=== PATIENT | female | born 1985 | race Caucasian/White ===

== ENCOUNTER → 2018-06-29 | Outpatient (CLI) | payer OTHER ==
[2018-06-29 12:42] LABS: BASO % 0 % (0-3); EOS % 0 % (0-3); HEMATOCRIT 41.9 % (36.0-47.0); HEMOGLOBIN 14.3 g/dL (12.0-15.5); LYMPH # 1.5 x10^3/uL (1.0-4.8); LYMPH % 25 % (24-48); MEAN CORPUSCULAR HEMOGLOBIN 30 pg (25-35); MEAN CORPUSCULAR HGB CONC 34 g/dL (31-37); MEAN CORPUSCULAR VOLUME 89 fL (79-100); MONO # 0.4 x10^3/uL (0.0-1.1); MONO % 7 % (0-9); NEUT % 68 % (31-73); PLATELET COUNT 240 x10^3/uL (140-400); RED BLOOD COUNT 4.73 x10^6/uL (3.50-5.40); RED CELL DISTRIBUTION WIDTH 12.9 % (11.5-14.5)
[2018-06-29 12:48] LABS: ALBUMIN 3.4 g/dL (3.4-5.0); ALBUMIN/GLOBULIN RATIO 0.8 (1.0-1.7); CALCIUM 8.6 mg/dL (8.5-10.1); GFR 63.9; POTASSIUM 3.8 mmol/L (3.5-5.1); TOTAL BILIRUBIN 0.6 mg/dL (0.2-1.0); TOTAL PROTEIN 7.6 g/dL (6.4-8.2)
== END | disposition home or self-care (01) ==
LOC: LAB 11:11
PROVIDERS: ATTEND Family Medicine
DX: R10.84 Generalized abdominal pain (principal)
CPT/HCPCS: 36415; 80053; 85025

== ENCOUNTER 2020-11-06 14:35 | Emergency (ER) | payer SELFPAY ==
[~2020-11-06] VITALS: Ht 157.5 cm; Wt 132.0 kg
--- NOTE | 2020-11-06 15:02 | PHYS DOC ---
Adult General Chief Complaint Chief Complaint: LOWER EXTREMITY SWELLING HPI HPI Patient is a 35F presented to the emergency department for worsening left lower extremity pain and swelling. Patient states approximate 2 weeks ago she started injury she fell and has been having ongoing pain in her left foot. Was seen by a security nurse who diagnosed her with severe plantar fasciitis. However since the time the patient notes that she has been having worsening sensation of swelling over the left calf and ankle. Also notes worsening pain in the area. Patient states this has been worsening over the last 2 days as well. Denies any fever, chills, shortness of breath, chest pain Review of Systems Review of Systems Constitutional: Denies fever or chills [] Eyes: Denies change in visual acuity, redness, or eye pain [] HENT: Denies nasal congestion or sore throat [] Respiratory: Denies cough or shortness of breath [] Cardiovascular: No additional information not addressed in HPI [] GI: Denies abdominal pain, nausea, vomiting, bloody stools or diarrhea [] : Denies dysuria or hematuria [] Musculoskeletal: Denies back pain or joint pain [] Integument: Denies rash or skin lesions [] Neurologic: Denies headache, focal weakness or sensory changes [] Endocrine: Denies polyuria or polydipsia [] All other systems were reviewed and found to be within normal limits, except as documented in this note. Physical Exam Physical Exam Constitutional: Well developed, well nourished, no acute distress, non-toxic appearance. [] HENT: Normocephalic, atraumatic, bilateral external ears normal, oropharynx moist, no oral exudates, nose normal. [] Eyes: PERRLA, EOMI, conjunctiva normal, no discharge. [] Neck: Normal range of motion, no tenderness, supple, no stridor. [] Cardiovascular:Heart rate regular rhythm, no murmur [] Lungs & Thorax: Bilateral breath sounds clear to auscultation [] Abdomen: Bowel sounds normal, soft, no tenderness, no masses, no pulsatile masses. [] Skin: Warm, dry, no erythema, no rash. [] Back: No tenderness, no CVA tenderness. [] Extremities: No tenderness, no cyanosis, no clubbing, ROM intact, no edema. [] Neurologic: Alert and oriented X 3, normal motor function, normal sensory function, no focal deficits noted. [] Psychologic: Affect normal, judgement normal, mood normal. [] EKG EKG [] Radiology/Procedures Radiology/Procedures Exam performed: Left lower extremity venous Doppler. HISTORY: Left leg pain. DATE OF SERVICE: 11/06/2020. COMPARISON: None available Technique: Real-time grayscale, color flow color duplex ultrasonography analysis off the left lower extremity deep venous system is performed and images are obtained. FINDINGS: There is a occlusive thrombus in the left superficial femoral vein extending up to the popliteal vein. The peroneal veins are not visualized. IMPRESSION: Study is positive for DVT as outlined above. Electronically signed by: Sara Espinoza MD (11/06/2020 4:09 PM) [id number] Heart Score Risk Factors: Risk Factors: DM, Current or recent (<one month) smoker, HTN, HLP, family history of CAD, obesity. Risk Scores: Risk Factors: DM, Current or recent (<one month) smoker, HTN, HLP, family history of CAD, obesity. Course & Med Decision Making Course & Med Decision Making Pertinent Labs and Imaging studies reviewed. (See chart for details) 35-year-old female with new onset of left lower extremity swelling is always reported history of an injury to the area. Primary concern is for acute DVT in the left lower extremity. Considerations for fracture, cellulitis or compartment syndrome. Will obtain an x-ray of the area as well as an ultrasound to rule out DVT 16:45 -left lower extremity ultrasound does demonstrate evidence of a DVT. I discussed with the hospitalist at this time we agreed the patient be discharged home with a course of Xarelto and follow-up with her primary care physician Dr. Blackwell. At this time the patient denies any shortness of breath, chest pain. Patient ambulated without any desaturation. I do not suspect pulmonary embolism Dragon Disclaimer Dragon Disclaimer This electronic medical record was generated, in whole or in part, using a voice recognition dictation system. Departure Departure: Impression: Primary Impression: DVT (deep venous thrombosis) Disposition: 01 DC HOME SELF CARE/HOMELESS Condition: GOOD Referrals: YURIDIA FORRESTER DO (PCP) Patient Instructions: Deep Vein Thrombosis Additional Instructions: Thank you for visiting our emergency department. You were seen for the swelling in your left lower extremity. Ultrasound was obtained which did demonstrate blood clot or a DVT in your left leg. It is very important that you take your medication as prescribed. These conditions can cover your lungs and become life-threatening if not properly treated. Please return the emergency department immediately if you have any sudden worsening of your symptoms, severe shortness of breath or chest pain or dizziness. Scripts Rivaroxaban (XARELTO) 15 Mg Tablet 15 MG PO BID for dvt for 21 Days, #42 TAB Prov: CAITY DAVIS MD 11/06/20 CAITY DAVIS MD Nov 06, 2020 15:02
--- NOTE | 2020-11-06 15:28 | RAD ---
Exam performed: X-ray left ankle and foot 3 views. Indication: Fall Date of Service: 11/06/2020 . Comparison: None available Three views left ankle and foot foot findings: Normal alignment of the foot and ankle preserved. There is no acute fracture or dislocation. There is diffuse soft tissue swelling around the foot and ankle. No foreign bodies are identified. Impression: Diffuse soft tissue swelling without underlying bony abnormality Electronically signed by: Sara Espinoza MD (11/06/2020 3:26 PM) [id number]
--- NOTE | 2020-11-06 16:11 | RAD ---
Exam performed: Left lower extremity venous Doppler. HISTORY: Left leg pain. DATE OF SERVICE: 11/06/2020. COMPARISON: None available Technique: Real-time grayscale, color flow color duplex ultrasonography analysis off the left lower extremity de ep venous system is performed and images are obtained. FINDINGS: There is a occlusive thrombus in the left superficial femoral vein extending up to the popliteal vein . The peroneal veins are not visualized. IMPRESSION: Study is positive for DVT as outlined above. Electronically signed by: Sara Espinoza MD (11/06/2020 4:09 PM) [id number]
[2020-11-06 16:14] LABS: BILIRUBIN,URINE NEG (NEG); CLARITY,URINE HAZY; COLOR,URINE AMBER; GLUCOSE,URINE NEG (NEG); UROBILINOGEN,URINE 0.2 mg/dL (0.2 mg/dL)
[2020-11-06 16:15] LABS: BACTERIA,URINE MANY /HPF (0-FEW); NITRITE,URINE NEG (NEG); RBC,URINE 20-40 /HPF (0-2); SQUAMOUS EPITHELIAL CELL,UR MANY /LPF
[2020-11-06 16:16] LABS: U PREG PATIENT NEGATIVE (NEG)
[2020-11-06] MEDS ORDERED: RIVA15TA PO (16:41)
[2020-11-06 17:01] VITALS: BP 149/73
[2020-11-06] MEDS ORDERED: KETOROLAC 30 MG/ML VIAL. IM ONE (17:15)
[2020-11-06] MEDS ORDERED: TRAM50TA PO (17:33)
[2020-11-06] MEDS ORDERED: TRAM100T12 PO (17:35)
== END 2020-11-06 17:40 | disposition home or self-care (01) ==
LOC: ER 14:35
DX: I82.402 Acute embolism and thrombosis of unspecified deep veins of left lower extremity (principal)
CPT/HCPCS: 73610; 73630; 81001; 81025; 93971; 96372; 99285; J1885

== ENCOUNTER 2020-11-13 23:13 | Emergency (ER) | payer SELFPAY ==
[~2020-11-13] VITALS: Ht 157.5 cm; Wt 128.1 kg
[~2020-11-13 23:13] MED LIST: RIVA15TA PO; TRAM100T12 PO; TRAM50TA PO
--- NOTE | 2020-11-14 00:32 | EKG ---
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
--- NOTE | 2020-11-14 00:35 | PHYS DOC ---
Past History Past Medical History: DVT Past Surgical History: No Surgical History Alcohol Use: Occasionally Adult General Chief Complaint Chief Complaint: CHEST PAIN [facility] HPI Patient is a 35-year-old female who presents for chest pain. Reports this started at 6 PM while at rest, is left-sided over the left breast and rated 5/10 in severity. Reports pain is a dull pressure that has progressed into left shoulder and also right breast, it has been constant since onset. She reports it feels like heartburn and has been throbbing. Patient concerned because she was recently diagnosed with left superficial femoral vein thrombosis at our facility November 06 and has been on Xarelto ever since. Patient denies any known prior vacating factor as to why she had a venous thrombosis, denies hemoptysis, recent long distance travel, smoking history. She does use OCPs containing estrogen (Vienva). Patient otherwise denies fever, syncope, falls, lightheadedness or dizziness, ripping or tearing chest pain, cough, hemoptysis, abdominal pain, changes in urinary or bladder function, no motor or sensory function changes, no neurologic changes Review of Systems Review of Systems Fourteen body systems of review of systems have been reviewed. See HPI for pertinent positives and negative responses, other god[place] all other systems are negative, non-pertinent or non-contributory Allergies Allergies Allergies Coded Allergies Type Severity Reaction Last Updated Verified No Known Drug Allergies 11/06/20 No Physical Exam Physical Exam Constitutional: Well developed, well nourished, no acute distress, non-toxic appearance. HENT: Normocephalic, atraumatic, bilateral external ears normal, oropharynx moist, no oral exudates, nose normal. Eyes: PERRLA, EOMI, conjunctiva normal, no discharge. Neck: Normal range of motion, no tenderness, supple, no stridor. Cardiovascular: Heart rate regular, sinus rhythm, no murmurs rubs or gallops Lungs & Thorax: Bilateral breath sounds clear to auscultation Abdomen: Bowel sounds normal, protuberant abdomen and soft, no tenderness, no masses, no pulsatile masses. Nonsurgical abdomen, no peritoneal signs Skin: Warm, dry, no erythema, no rash. Back: No tenderness, no CVA tenderness. Extremities: No tenderness, no cyanosis, no clubbing, ROM intact, no edema. Neurologic: Alert and oriented X 3, grossly normal motor & sensory function, no focal deficits noted. Psychologic: Anxious affect, judgement normal, mood normal. Current Patient Data Vital Signs Vital Signs Date Time Temp Pulse Resp B/P (MAP) Pulse Ox O2 Delivery O2 Flow Rate FiO2 11/13/20 23:30 97.9 90 20 149/73 (98) 97 Room Air Lab Results Laboratory Tests Test 11/14/20 00:22 11/14/20 00:39 White Blood Count 13.1 x10^3/uL Red Blood Count 4.48 x10^6/uL Hemoglobin 12.5 g/dL Hematocrit 38.0 % Mean Corpuscular Volume 85 fL Mean Corpuscular Hemoglobin 28 pg Mean Corpuscular Hemoglobin Concent 33 g/dL Red Cell Distribution Width 14.0 % Platelet Count 380 x10^3/uL Neutrophils (%) (Auto) 60 % Lymphocytes (%) (Auto) 33 % Monocytes (%) (Auto) 6 % Eosinophils (%) (Auto) 1 % Basophils (%) (Auto) 0 % Neutrophils # (Auto) 7.9 x10^3uL Lymphocytes # (Auto) 4.3 x10^3/uL Monocytes # (Auto) 0.7 x10^3/uL Eosinophils # (Auto) 0.2 x10^3/uL Basophils # (Auto) 0.0 x10^3/uL Sodium Level 137 mmol/L Potassium Level 4.0 mmol/L Chloride Level 100 mmol/L Carbon Dioxide Level 26 mmol/L Anion Gap 11 Blood Urea Nitrogen 18 mg/dL Creatinine 1.1 mg/dL Estimated GFR (Cockcroft-Gault) 56.5 BUN/Creatinine Ratio 16 Glucose Level 104 mg/dL Calcium Level 10.2 mg/dL Total Bilirubin 0.2 mg/dL Aspartate Amino Transf (AST/SGOT) 17 U/L Alanine Aminotransferase (ALT/SGPT) 60 U/L Alkaline Phosphatase 93 U/L Troponin I Quantitative < 0.017 ng/mL LN-[id number]-P-Type Natriuretic Peptide 138 pg/mL Total Protein 8.7 g/dL Albumin 3.3 g/dL Albumin/Globulin Ratio 0.6 Bedside Urine HCG, Qualitative hcg negative Current Medications Medications (Trade) Dose Ordered Sig/Dasha Route PRN Reason Start Time Stop Time Status Last Admin Dose Admin Iohexol (Omnipaque 350 Mg/ml) 100 ml 1X ONCE IV 11/14/20 01:00 11/14/20 01:02 DC 11/14/20 01:13 Info (Do NOT chart on this entry -- for MONITORING) 1 each PRN DAILY PRN MC SEE COMMENTS 11/14/20 00:45 11/16/20 00:44 Sodium Chloride 1,000 ml @ 1,000 mls/hr 1X ONCE IV 11/14/20 03:00 11/14/20 03:59 Enoxaparin Sodium (Lovenox 150mg Syringe) 130 mg 1X ONCE SQ 11/14/20 03:00 11/14/20 03:01 Enoxaparin Sodium (Lovenox 120mg Syringe) 120 mg STK-MED ONCE SQ 11/14/20 02:42 11/14/20 02:42 DC EKG EKG EKG ordered and interpreted by myself at 2355 hrs. as sinus rhythm at 83 bpm, unremarkable intervals, no axis deviation, no findings of right right heart strain, no acute ischemic findings, no STEMI. Radiology/Procedures Radiology/Procedures INDICATION: Reason: SHOB RECENT LLE DVT, OMNI 350, 100ml / Spl. Instructions: / History: COMPARISON: None. TECHNIQUE: Axial CT images obtained through the chest. Intravenous contrast utilized. Angiogram 3D images processed per protocol. One or more of the following individualized dose reduction techniques were utilized for this examination: 1. Automated exposure control; 2. Adjustment of the mA and/or kV according to patient size; 3. Use of iterative reconstruction technique. FINDINGS: No evidence of pneumothorax. Small nodule in the lingula. No focal airspace consolidation or pulmonary edema. Partially visualized liver is low density which can be seen with fatty infiltration. Prominence of distal esophagus versus small hiatal hernia. There is some scattered prominent lymph nodes in the mediastinum. Thoracic aorta is not aneurysmal. Portion of ascending thoracic aorta limited by motion. Bilateral pulmonary embolus is identified extending into the distal aspect of the right main pulmonary artery. Degenerative changes of spine. IMPRESSION: Bilateral pulmonary embolus is identified including extending to the distal most aspect of the right main pulmonary artery. Report called to the ER at 2:10 AM. Electronically signed by: Danny Love MD (11/14/2020 2:10 AM) [id number] Heart Score HEART Score for Chest Pain: HEART Score for Chest Pain Response (Comments) Value History Slighlty/Non-Suspicious 0 ECG Normal 0 Age < 45 0 Risk Factors 1 or 2 Risk Factors 1 Troponin < Normal Limit 0 Total 1 Risk Factors: Risk Factors: DM, Current or recent (<one month) smoker, HTN, HLP, family history of CAD, obesity. Risk Scores: Risk Factors: DM, Current or recent (<one month) smoker, HTN, HLP, family history of CAD, obesity. Course & Med Decision Making Course & Med Decision Making Pertinent Labs and Imaging studies reviewed. (See chart for details) Discussed diagnosis of bilateral pulmonary embolism. Appear to be nonmassive given no evidence of right heart strain on EKG and negative troponin. BNP slightly elevated, question this is due to patient's weight Patient on estrogen OCPs which are likely cause, she is also on Xarelto with weight greater than 128 kg which could also have been the cause. 1 mg/kg Lovenox administered while in ER for PE treatment I contacted [facility] hospitalist and case was discussed, given that patient still had ongoing chest pressure and has no PCP/good access to care and outpatient follow-up, I stressed need for admission for continued work-up such as echocardiogram to ensure no right heart strain etc. [place] hospitalist declined admission, recommended patient be transferred to [facility] that had specialist such as chucking machine set up operator tool/interventional radiologist God for bed patient were to decompensate even though she is hemodynamically stable. I agree with this decision [facility] was contacted and case was discussed with on- call resident physician. He agreed need for transfer and admission to their facility for continued medical work-up and management as indicated. Patient updated on decision to transfer and proposed plan for transportation via EMS to [facility] for admission, she was amenable. All questions and concerns addressed prior to ER departure Critical Care Time This patient required critical care. Due to the fact that the patient required a significant amount of one on one physician - patient contact time, ordering and review of studies, arranging urgent treatment with development of a management plan, evaluation of patients response to treatment with frequent reassessments, and discussions with other providers this patient required critical care time in excess of 30 minutes. Critical care time was indicated due to the inherent instability and/or potential for instability in this patient. The critical care time that is allocated to this patient is above and beyond any time spent on any other billable procedures performed on this patient. Dragon Disclaimer Dragon Disclaimer This electronic medical record was generated, in whole or in part, using a voice recognition dictation system. Departure Departure: Impression: Primary Impression: Bilateral pulmonary embolism Disposition: 02 DC/TRF OTHER SHORT TERM HOS ([facility]) Admitting Physician: Other (dr aguilar) Condition: STABLE Referrals: YURIDIA FORRESTER DO (PCP) MANAN GUO DO Nov 14, 2020 00:35
[2020-11-14] MEDS ORDERED: CONTRAST GIVEN. MC PRN (00:45)
[2020-11-14] MEDS ORDERED: IOHEXOL 350 MG/ML 100 ML VIAL. IV ONE (01:00)
[2020-11-14 01:25] LABS: BASO % 0 % (0-3); EOS # 0.2 x10^3/uL (0.0-0.7); EOS % 1 % (0-3); HEMOGLOBIN 12.5 g/dL (12.0-15.5); LYMPH # 4.3 x10^3/uL (1.0-4.8); LYMPH % 33 % (24-48); MEAN CORPUSCULAR HEMOGLOBIN 28 pg (25-35); MEAN CORPUSCULAR HGB CONC 33 g/dL (31-37); MEAN CORPUSCULAR VOLUME 85 fL (79-100); MONO # 0.7 x10^3/uL (0.0-1.1); MONO % 6 % (0-9); NEUT # 7.9 x10^3uL (1.8-7.7); NEUT % 60 % (31-73); PLATELET COUNT 380 x10^3/uL (140-400); RED BLOOD COUNT 4.48 x10^6/uL (3.50-5.40); WHITE BLOOD COUNT 13.1 x10^3/uL (4.0-11.0)
[2020-11-14 01:36] LABS: CALCIUM 10.2 mg/dL (8.5-10.1); CREATININE 1.1 mg/dL (0.6-1.0); GFR 56.5
[2020-11-14 01:45] LABS: ALBUMIN 3.3 g/dL (3.4-5.0); ALBUMIN/GLOBULIN RATIO 0.6 (1.0-1.7); TOTAL BILIRUBIN 0.2 mg/dL (0.2-1.0); TOTAL PROTEIN 8.7 g/dL (6.4-8.2)
--- NOTE | 2020-11-14 02:12 | RAD ---
INDICATION: Reason: SHOB RECENT LLE DVT, OMNI 350, 100ml / Spl. Instructions: / History: COMPARISON: None. TECHNIQUE: Axial CT images obtained through the chest. Intravenous contrast utilized. Angiogram 3D images proce ssed per protocol. One or more of the following individualized dose reduction techniques were utilized for this examinat ion: 1. Automated exposure control; 2. Adjustment of the mA and/or kV according to patient size; 3 . Use of iterative reconstruction technique. FINDINGS: No evidence of pneumothorax. Small nodule in the lingula. No focal airspace consolidation or pulmonary edema. Partially visualized liver is low density which can be seen with fatty infiltration. Prominence of distal esophagus versus small hiatal hernia. There is some scattered prominent lymph nodes in the mediastinum. Thoracic aorta is not aneurysmal. Portion of ascending thoracic aorta limited by motion. Bilateral pulmonary embolus is identified extending into the distal aspect of the right main pulmonar y artery. Degenerative changes of spine. IMPRESSION: Bilateral pulmonary embolus is identified including extending to the distal most aspect of the right main pulmonary artery. Report called to the ER at 2:10 AM. Electronically signed by: Danny Love MD (11/14/2020 2:10 AM) [id number]
[2020-11-14] MEDS ORDERED: ENOXAPARIN ** NOTE DOSE ** SYRINGE SQ ONE ×2 (02:42→03:00)
[2020-11-14] MEDS ORDERED: IV NORMAL SALINE 1,000ML 1,000 ML IV ONE (03:00)
[2020-11-14 05:00] VITALS: BP 114/68
== END 2020-11-14 05:09 | disposition short-term general hospital (02) ==
LOC: ER 23:13
DX: I26.99 Other pulmonary embolism without acute cor pulmonale (principal); Z86.718 Personal history of other venous thrombosis and embolism
CPT/HCPCS: 36415; 71275; 80053; 81025; 83880; 84484; 85025; 93005; 96360; 96361; 96372; 99285; J1650; J7030; Q9967

== ENCOUNTER 2021-07-30 02:07 | Emergency (ER) | payer BC ==
[~2021-07-30] VITALS: Ht 157.5 cm; Wt 138.0 kg
--- NOTE | 2021-07-30 02:14 | PHYS DOC ---
Past History Past Medical History: DVT Additional Past Medical Histor: skull fx 6-7 yrs ago in a horse riding accident (CUCO WEBBER MD) Past Surgical History: Tonsillectomy, Other Additional Past Surgical Histo: dental (CUCO WEBBER MD) Alcohol Use: Occasionally (CUCO WEBBER MD) Adult General HPI HPI Patient is a 36-year-old female with a past medical history of PE and DVT who presents with left leg swelling (CUCO WEBBER MD) Review of Systems Review of Systems Review of systems otherwise unremarkable except noted in HPI (CUCO WEBBER MD) Allergies Allergies Allergies Coded Allergies Type Severity Reaction Last Updated Verified No Known Drug Allergies 11/06/20 No (CUCO WEBBER MD) Physical Exam Physical Exam Constitutional: Well developed, well nourished, no acute distress, non-toxic appearance. [] HENT: Normocephalic, atraumatic, Eyes: conjunctiva normal, no discharge. [] Neck: Normal range of motion, no tenderness, supple, no stridor. [] Cardiovascular:Heart rate regular rhythm, no murmur [] Lungs & Thorax: Bilateral breath sounds clear to auscultation [] Abdomen: soft, no tenderness, no masses, no pulsatile masses. [] Skin: Warm, dry, no erythema, no rash. [] Extremities: No tenderness, no cyanosis, no clubbing, ROM intact, no edema. [] Neurologic: Alert and oriented X 3, normal motor function, normal sensory function, no focal deficits noted. [] Psychologic: Affect normal, judgement normal, mood normal. [] (CUCO WEBBER MD) EKG EKG [] (CUCO WEBBER MD) Radiology/Procedures Radiology/Procedures [] (CUCO WEBBER MD) Radiology/Procedures EXAMINATION: US BILATERAL LOWEREXTREMITY VENOUS DOPPLER INDICATION: Reason: leg swelling, H/O PE and DVT / Spl. Instructions: / History: COMPARISONS: Omar ultrasound from TECHNIQUE: Grayscale, color and spectral Doppler evaluation of the bilateral lower extremity deep venous system(s) was performed. FINDINGS: bilateral common femoral, femoral and popliteal veins are normally compressible and demonstrate normally directed and appropriately phasic flow with augmentation. Normal flow is present within the saphenofemoral junctions and deep femoral veins in the proximal thighs and the posterior tibial and right peroneal veins in the proximal calves. The peroneal and posterior tibial veins in the left lower extremity are not visualized. IMPRESSION: 1. No evidence of deep venous thrombosis in the right lower extremity. 2. No evidence of deep venous thrombosis within the left lower extremity to the level of the popliteal vein. The left peroneal and posterior tibial veins in the proximal calf were not visualized. Electronically signed by: Jacob Aquino DO (07/30/2021 7:41 AM) [facility] (MANAN GUO DO) Heart Score C/O Chest Pain: No Risk Factors: Risk Factors: DM, Current or recent (<one month) smoker, HTN, HLP, family history of CAD, obesity. Risk Scores: Risk Factors: DM, Current or recent (<one month) smoker, HTN, HLP, family history of CAD, obesity. (CUCO WEBBER MD) Course & Med Decision Making Course & Med Decision Making Patient is a 36-year-old female with a past medical history of PE and DVT who presents with left leg swelling [] (CUCO WEBBER MD) Course & Med Decision Making I assumed care of patient after comprehensive signout from off going physician. I reviewed ER visit so far and personally saw patient repeating certain aspects of history and physical exam. I disclose no emergent or surgical findings, there is no indication for further diagnostic work-up and/or need for intervention in ER setting. During decision made to discharge home with close outpatient PCP follow-up for repeat scan of the lower extremities and work-up for lower extremity edema. Patient educated on need for fluid control, sodium control, and wearing compression stockings. Strict return precautions discussed with good understanding, all questions and concerns addressed prior to ER departure (MANAN GUO DO) Dragon Disclaimer Dragon Disclaimer This electronic medical record was generated, in whole or in part, using a voice recognition dictation system. (CUCO WEBBER MD) Departure Departure: Impression: Primary Impression: Leg swelling Disposition: HOME / SELF CARE / HOMELESS Condition: STABLE Referrals: YURIDIA FORRESTER DO (PCP) Additional Instructions: As discussed prior to ER departure, there were no emergent surgical findings based on your ER visit today. There is no obvious finding of a blood clot in your legs. With that said, as disclosed, it is recommended you follow-up with your primary care physician in the next 1 to 2 weeks for repeat evaluation and ultrasound of your lower extremities. The cause of your lower extremity swelling is unknown and further work-up in outpatient setting is advised. This may or may not include need for further labs and/or cardiac ultrasound. If any concerning signs or symptoms present prior to outpatient follow-up please do not hesitate to come back for repeat evaluation. It was a pleasure to take care of you and I wish you the best going forward CUCO WEBBER MD Jul 30, 2021 02:14 MANAN GUO DO Jul 30, 2021 07:59
[2021-07-30 03:04] LABS: CALCIUM 8.9 mg/dL (8.5-10.1); CREATININE 0.8 mg/dL (0.6-1.0); GFR 81.2; POTASSIUM 4.9 mmol/L (3.5-5.1)
[2021-07-30 03:24] LABS: HEMATOCRIT 33.2 % (36.0-47.0); HEMOGLOBIN 10.8 g/dL (12.0-15.5); RED BLOOD COUNT 4.11 x10^6/uL (3.50-5.40); RED CELL DISTRIBUTION WIDTH 15.4 % (11.5-14.5); WHITE BLOOD COUNT 11.8 x10^3/uL (4.0-11.0)
--- NOTE | 2021-07-30 07:44 | RAD ---
EXAMINATION: US BILATERAL LOWEREXTREMITY VENOUS DOPPLER INDICATION: Reason: leg swelling, H/O PE and DVT / Spl. Instructions: / History: COMPARISONS: ultrasound from TECHNIQUE: Grayscale, color and spectral Doppler evaluation of the bilateral lower extremity deep brinda ous system(s) was performed. FINDINGS: bilateral common femoral, femoral and popliteal veins are normally compressible and demonstrate regi lly directed and appropriately phasic flow with augmentation. Normal flow is present within the saphenofemoral junctions and deep femoral veins in the proximal thi ghs and the posterior tibial and right peroneal veins in the proximal calves. The peroneal and forestry tree pruner ior tibial veins in the left lower extremity are not visualized. IMPRESSION: 1. No evidence of deep venous thrombosis in the right lower extremity. 2. No evidence of deep venous thrombosis within the left lower extremity to the level of the poplitea l vein. The left peroneal and posterior tibial veins in the proximal calf were not visualized. Electronically signed by: Jacob Aquino DO (07/30/2021 7:41 AM) [facility]
[2021-07-30 08:27] VITALS: BP 123/83
== END 2021-07-30 08:51 | disposition home or self-care (01) ==
LOC: ER 02:07
DX: M79.89 Other specified soft tissue disorders (principal); Z86.718 Personal history of other venous thrombosis and embolism; Z59.0 Homelessness; Z86.711 Personal history of pulmonary embolism
CPT/HCPCS: 36415; 80048; 85027; 85379; 93970; 99284